=== PATIENT | male | born 1995 | race Caucasian/White ===

== ENCOUNTER 2017-02-01 10:17 | Emergency (ER) | payer OTHER ==
--- NOTE | 2017-02-01 10:22 | EDM.PDOC ---
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 Denies LOC, N/V, visual changes, or any other injury. Tetanus vaccine is current. Onset: Today Location: Reports: Face Severity: Mild Improves with: Reports: None Worsens with: Reports: None Associated Symptoms: Reports: No Other Symptoms Right Eye Pain Score (Numeric/FACES): 7 - Related Data Allergies Allergy/AdvReac Type Severity Reaction Status Date / Time Penicillins Allergy Rash Verified 02/01/17 10:33 Sulfa (Sulfonamide Allergy Hives Verified 02/01/17 10:33 Antibiotics) Home Meds: Home Meds . [No Known Home Meds] 02/01/17 [History] Past Medical History - Past Health History Medical/Surgical History: Denies Medical/Surgical History Social & Family History - Family History Family Medical History: Noncontributory - Living Situation & Occupation Occupation: Employed ED ROS GENERAL - Review of Systems Review Of Systems: ROS reveals no pertinent complaints other than HPI. ED EXAM, SKIN/RASH Exam: See Below Exam Limited By: No Limitations General Appearance: Alert, WD/WN, No Apparent Distress Eye Exam: Bilateral Eye: EOMI, Normal Inspection, PERRL, Other (1.2cm laceration to Rt upper eyelid) Ears: Normal External Exam Nose: Normal Inspection Throat/Mouth: Normal Inspection Head: Atraumatic, Normocephalic Neck: Normal Inspection Respiratory/Chest: No Respiratory Distress Neurological: Alert, Oriented, CN II-XII Intact, No Motor/Sensory Deficits Psychiatric: Normal Affect, Normal Mood Skin: Warm, Dry ED SKIN PROCEDURES - Laceration/Wound Repair Right Upper Face Lac/wound length in cm: 1.2 (Rt upper eyelid) Appearance: Subcutaneous, Linear, Clean Distal NVT: Neuro & Vascular Intact Anesthetic Type: Local Local Anesthesia - Lidocaine (Xylocaine): 1% Plain Local Anesthetic Volume: 3cc Skin Prep: Chlorhexidine (Hibiciens), Saline Saline irrigation (cc's): 10 Exploration/Debridement/Repair: Wound Explored, in a Bloodless Field, Explored to Base, Minimal Debridement Closed with: Sutures Suture Size: other (6-0) # of Sutures: 5 Suture Type: Nylon, Interrupted Sterile Dressing Applied: None Tetanus Status Addressed: Yes Complications: No Course - Vital Signs Last Recorded V/S: Last Vital Signs Temp 36.6 C 02/01/17 10:33 Pulse 71 02/01/17 10:33 Resp 16 02/01/17 10:33 BP 129/80 02/01/17 10:33 Pulse Ox 100 02/01/17 10:33 - Orders/Labs/Meds Meds: Medications Discontinued Medications Generic Name Dose Route Start Last Admin Trade Name Freq PRN Reason Stop Dose Admin Lidocaine HCl 30 ml 02/01/17 10:45 02/01/17 11:15 Xylocaine-Mpf 1% INJECT 02/01/17 10:46 30 ml ONETIME ONE Administration Departure - Departure Time of Disposition: 11:39 Disposition: Home, Self-Care 01 Condition: good Clinical Impression: Work related injury Laceration, eyelid, right Qualifiers: Encounter type: initial encounter Qualified Code(s): S01.111A - Laceration without foreign body of right eyelid and periocular area, initial encounter - Discharge Information Instructions: Laceration Care, Adult, Stitches, Dion, or Adhesive Wound Closure, [id number] Forms: ED Department Discharge Additional Instructions: Follow up in clinic for suture removal in 5 to 7 days.
[2017-02-01 10:41] VITALS: BP 129/80
[2017-02-01] MEDS ORDERED: Lidocaine 1% 30 ML SDV INJECT ONE (10:45)
== END 2017-02-01 11:46 | disposition home or self-care (01) ==
LOC: DL.ED 10:17
DX: S01.111A Laceration without foreign body of right eyelid and periocular area, initial encounter (principal); Z88.0 Allergy status to penicillin; Z88.2 Allergy status to sulfonamides; Y99.0 Civilian activity done for income or pay; W27.8XXA Contact with other nonpowered hand tool, initial encounter
CPT/HCPCS: 12011; 99283